=== PATIENT | male | born 1935 | race Caucasian/White ===

== ENCOUNTER 2016-09-14 19:11 | Emergency (ER) | payer OTHER, BC ==
[~2016-09-14] VITALS: Ht 177.8 cm; Wt 106.1 kg
[~2016-09-14 19:11] MED LIST: ARICEPT10 MG PO; ASPIR 8181 M1 PO; Aricept PO; Ascorbic Acid,Ester- PO; Aspirin E.C. PO; BACTRIM,SEPT1 TABLET PO; BILBERRY EXTRAC30 MG PO; CALCIUM 600 +1 EAC7 PO; CYANOCOBAL1000 MCG/2 IM; Catapres PO; DILT-CD240 MG PO; FENOFIBRATE134 M1 PO; FINASTERIDE5 MG PO; GABAPENTIN600 MG PO; GLIPIZIDE ER2.5 M1 PO; IRBESARTAN75 MG PO; JANUMET 50/11 TABLET PO; JANUVIA25 MG PO; Januvia PO; LOVAZA1 GM PO; LUNESTA2 MG PO; NEURONTIN600 MG PO; NIZATIDINE150 MG PO; NORCO 7.5-3251 EACH PO; NORVASC5 MG PO; NOVOLOG MI100 UNIT/M SC; Neurontin PO; Norvasc PO; PRAVASTATIN SOD20 MG PO; Proscar PO; QUESTRAN POWDE378 GM PO; SPIRONOLACTONE25 MG PO; SUPER B COMP1 TABLET PO; THERAGRAN1 TABLET PO; TRANSDERM-NITR0.4 MG PO; VITAMIN C1000 MG PO; VITAMIN D5000 UNIT PO; Zocor PO
[2016-09-14 21:45] VITALS: BP 142/68
== END 2016-09-14 21:45 | disposition home or self-care (01) ==
LOC: EME 19:11
DX: T14.8 Other injury of unspecified body region (principal); R51 Headache; M54.2 Cervicalgia; W19.XXXA Unspecified fall, initial encounter; Y93.H2 Activity, gardening and landscaping; I10 Essential (primary) hypertension; E11.9 Type 2 diabetes mellitus without complications; K21.9 Gastro-esophageal reflux disease without esophagitis; E03.9 Hypothyroidism, unspecified; I25.2 Old myocardial infarction; Z95.1 Presence of aortocoronary bypass graft; Z87.891 Personal history of nicotine dependence
CPT/HCPCS: 70450; 72125; 99281; 99283